=== PATIENT | male | born 1955 | race Hispanic/Latino ===

== ENCOUNTER 2021-04-17 09:24 | Outpatient (CLI) | payer BC | END 2021-04-17 09:25 | disposition home or self-care (01) | LOC: CSHMRI 09:24 | PROVIDERS: ATTEND Orthopaedic Surgery | DX: S46.111D Strain of muscle, fascia and tendon of long head of biceps, right arm, subsequent encounter (principal); M75.111 Incomplete rotator cuff tear or rupture of right shoulder, not specified as traumatic; M75.81 Other shoulder lesions, right shoulder; M24.111 Other articular cartilage disorders, right shoulder; M19.011 Primary osteoarthritis, right shoulder; M75.51 Bursitis of right shoulder ==